=== PATIENT | female | born 1965 | race Caucasian/White ===

== ENCOUNTER 2021-03-22 20:55 | Emergency (ER) | payer OTHER ==
[2021-03-22] MEDS ORDERED: Diphtheria,Pertussis(Acell),Tetanus Vaccine 0.5 ML Syringe IM ONE (21:56)
[2021-03-22] MEDS ORDERED: Bacitracin Oint 1 GM U/D Packet TOP ONE (21:56)
--- NOTE | 2021-03-22 22:00 | EDM.PDOC ---
ED HPI GENERAL MEDICAL PROBLEM - General Chief Complaint: Skin Complaint Stated Complaint: BURNT FINGER Time Seen by Provider: 03/22/21 21:13 Source of Information: Reports: Patient, Family, RN Notes Reviewed History Limitations: Reports: No Limitations - History of Present Illness INITIAL COMMENTS - FREE TEXT/NARRATIVE: 55-year-old female presents emergency department today with a burn on her index finger right hand she did this with a match. No functional complaints Treatments OPERATING ROOM REGISTERED NURSE: Reports: Other (see below) Other Treatments OPERATING ROOM REGISTERED NURSE: washed and cooled the burn with water. 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: Oncologic (Cancer) History: Reports: Cervix - Infectious Disease History Infectious Disease History: Reports: Chicken Pox - Past Surgical History HEENT Surgical History: Reports: Tonsillectomy Female Surgical History: Reports: Hysterectomy Social & Family History - Tobacco Use Tobacco Use Status *Q: Never Tobacco User - Caffeine Use Caffeine Use: Reports: Coffee - Recreational Drug Use Recreational Drug Use: No ED ROS GENERAL - Review of Systems Review Of Systems: See Below Constitutional: Reports: No Symptoms Skin: Reports: Burn(s) ED EXAM, SKIN/RASH Exam: See Below Text/Narrative:: Examination of the hand there are second-degree cunningham are partial-thickness cunningham palmar surface digit #2 on the right hand there is no circumferential involvement the largest burn is approximately 2 cm there is blistering present there is some charring related to the match. Full range of motion of the digit radial pulses +2 Course - Vital Signs Last Recorded V/S: Last Vital Signs Temp 97.0 F 03/22/21 21:22 Pulse 74 03/22/21 21:22 Resp 16 03/22/21 21:22 BP 145/89 H 03/22/21 21:22 Pulse Ox 96 03/22/21 21:22 - Orders/Labs/Meds Orders: Active Orders 24 hr Category Date Time Status Vaccines to be Administered [RC] PER UNIT ROUTINE Care 03/22/21 21:57 Ordered Bacitracin [Bacitracin Oint 1 GM] Med 03/22/21 21:56 Once 3 dose TOP ONETIME ONE Diphth,Pertuss(Acell),Tet Vac [Boostrix] Med 03/22/21 21:56 Once 0.5 ml IM .ONCE ONE Departure - Departure Time of Disposition: 21:59 Disposition: Home, Self-Care 01 Condition: Good Clinical Impression: Partial thickness burn of right index finger - Discharge Information Instructions: Burn Care, Adult, [id number] Referrals: PCP,None [Primary Care Provider] - Additional Instructions: Use Tylenol or Motrin as needed for pain control, continue to use the bacitracin until burn has healed, please follow-up with your primary care upon return home call or return to the emergency department worsening of symptoms Sepsis Event Note (ED) - Evaluation Sepsis Screening Result: No Definite Risk - Focused Exam Vital Signs: Vital Signs Temp Pulse Resp BP Pulse Ox 03/22/21 21:22 97.0 F 74 16 145/89 H 96 03/22/21 21:14 97.0 F 74 16 145/89 H 96 - My Orders Last 24 Hours: My Active Orders 03/22/21 21:56 Bacitracin [Bacitracin Oint 1 GM] 3 dose TOP ONETIME ONE Diphth,Pertuss(Acell),Tet Vac [Boostrix] 0.5 ml IM .ONCE ONE 03/22/21 21:57 Vaccines to be Administered [RC] PER UNIT ROUTINE - Assessment/Plan Last 24 Hours: My Active Orders 03/22/21 21:56 Bacitracin [Bacitracin Oint 1 GM] 3 dose TOP ONETIME ONE Diphth,Pertuss(Acell),Tet Vac [Boostrix] 0.5 ml IM .ONCE ONE 03/22/21 21:57 Vaccines to be Administered [RC] PER UNIT ROUTINE Plan: Assessment Acuity = acute Site and laterality = partial thickness burn digit #2 right hand Etiology = trauma with a match Manifestations = none Location of injury = Home Lab values = none Plan Treated with bacitracin tetanus updated follow-up with primary care upon return home This note was dictated using [employer] recognition software please call with any questions on syntax or grammar.
== END 2021-03-22 22:21 | disposition home or self-care (01) ==
LOC: JP.ED 20:55
DX: T23.221A Burn of second degree of single right finger (nail) except thumb, initial encounter (principal); Z23 Encounter for immunization; X08.8XXA Exposure to other specified smoke, fire and flames, initial encounter
CPT/HCPCS: 16020; 90471; 90715; 99282; 99283-25